=== PATIENT | female | born 1955 | race Two or more races ===

== ENCOUNTER 2016-07-18 09:50 | Emergency (ER) | payer BC ==
[~2016-07-18] VITALS: Ht 149.9 cm; Wt 69.9 kg
[~2016-07-18 09:50] MED LIST: CIPR-217 PO; METR500T PO
[2016-07-18 10:46] VITALS: BP 136/54
== END 2016-07-18 11:51 | disposition home or self-care (01) ==
LOC: ER 09:56
DX: S90.31XA Contusion of right foot, initial encounter (principal); E11.9 Type 2 diabetes mellitus without complications; I10 Essential (primary) hypertension; Z90.710 Acquired absence of both cervix and uterus; X58.XXXA Exposure to other specified factors, initial encounter; Y93.89 Activity, other specified; Y99.8 Other external cause status; Y92.89 Other specified places as the place of occurrence of the external cause
CPT/HCPCS: 73610; 73630